=== PATIENT | male | born 1950 | race Caucasian/White ===

== ENCOUNTER 2018-01-19 14:43 | Outpatient (CLI) | payer MEDICARE, OTHER ==
[~2018-01-19] VITALS: Ht 185.4 cm; Wt 152.9 kg
[2018-01-19 14:51] VITALS: BP 149/79
[2018-01-19 15:37] LABS: BASOPHILS % (AUTO) 0 % (0-10); EOSINOPHILS # (AUTO) 0.1 10^3/uL (0.0-0.3); EOSINOPHILS % (AUTO) 1 % (0-10); HEMATOCRIT 45 % (40-54); HEMOGLOBIN 15.4 G/DL (13.3-17.7); LYMPHOCYTES # (AUTO) 1.9 X 10^3 (1.0-4.0); LYMPHOCYTES % (AUTO) 25 % (12-44); MEAN CORPUSCULAR HEMOGLOBIN 29 PG (25-34); MEAN CORPUSCULAR HGB CONC 35 G/DL (32-36); MEAN CORPUSCULAR VOLUME 85 FL (80-99); MEAN PLATELET VOLUME 10.4 FL (7.4-10.4); MONOCYTES # (AUTO) 0.7 X 10^3 (0.0-1.0); MONOCYTES % (AUTO) 9 % (0-12); NEUTROPHILS % (AUTO) 65 % (42-75); PLATELET COUNT 207 10^3/uL (130-400); RED BLOOD COUNT 5.24 10^6/uL (4.35-5.85); RED CELL DISTRIBUTION WIDTH 13.1 % (10.0-14.5); WHITE BLOOD COUNT 7.7 10^3/uL (4.3-11.0)
[2018-01-19 15:44] LABS: BUN/CREATININE RATIO 11; CALCIUM 9.3 MG/DL (8.5-10.1); CARBON DIOXIDE 25 MMOL/L (21-32); CHLORIDE 103 MMOL/L (98-107); CREATININE SERUM 1.01 MG/DL (0.60-1.30); GFR ESTIMATED > 60; GLUCOSE 158 MG/DL (70-105); POTASSIUM 3.2 MMOL/L (3.6-5.0); SODIUM 139 MMOL/L (135-145)
--- NOTE | 2018-01-19 15:54 | Diagnostic Imaging Report ---
INDICATION: Preoperative evaluation. COMPARISON: None. FINDINGS: Two views of the chest are obtained. Heart size is normal. The pulmonary vessels appear unremarkable. There is no pneumothorax, mediastinal widening or pleural fluid. There is minimal atelectasis or infiltrate at the left lung base. The right lung is clear. There are mild degenerative changes in the spine. IMPRESSION: Minimal left basilar atelectasis or infiltrate. No additional abnormality is seen. Dictated by: Dictated on workstation # [id number]
[2018-01-19] MEDS ORDERED: BUSP15TA60 PO (15:55)
[2018-01-19] MEDS ORDERED: CITA40TA11 PO (15:55)
[2018-01-19] MEDS ORDERED: RANI-515 PO (15:55)
[2018-01-19] MEDS ORDERED: TAMS0.4C98 PO (15:55)
[2018-01-19] MEDS ORDERED: ASPI-586 PO (15:55)
[2018-01-19] MEDS ORDERED: CLON0.1T PO (15:55)
[2018-01-19] MEDS ORDERED: DILT30TA PO (15:55)
[2018-01-19] MEDS ORDERED: ATOR80TA76 PO (15:55)
[2018-01-19] MEDS ORDERED: HYDR25TA4 PO (15:55)
[2018-01-19] MEDS ORDERED: LISI40TA PO (15:55)
== END 2018-01-19 15:25 | disposition home or self-care (01) ==
LOC: PREOP 14:43
PROVIDERS: ATTEND Urology
DX: Z01.810 Encounter for preprocedural cardiovascular examination (principal); Z01.811 Encounter for preprocedural respiratory examination; Z01.812 Encounter for preprocedural laboratory examination; Z11.2 Encounter for screening for other bacterial diseases; N40.0 Benign prostatic hyperplasia without lower urinary tract symptoms
CPT/HCPCS: 36415; 71046; 80048; 85025; 86850; 86900; 86901; 87081; 93005

== ENCOUNTER 2018-01-24 06:00 | Day surgery (SDC) | payer MEDICARE, OTHER ==
[~2018-01-24] VITALS: Ht 185.4 cm; Wt 152.9 kg
[~2018-01-24 06:00] MED LIST: ASPI-586 PO; ATOR80TA76 PO; BUSP15TA60 PO; CITA40TA11 PO; CLON0.1T PO; DILT30TA PO; HYDR25TA4 PO; LISI40TA PO; RANI-515 PO; TAMS0.4C98 PO
[2018-01-24] MEDS ORDERED: cefTRIAXone 1 GM (ROCEPHIN) VIAL ONE (06:40)
[2018-01-24] MEDS ORDERED: NS (IVPB) 100 ML ONE (06:40)
[2018-01-24] MEDS ORDERED: LACTATED RINGERS 1,000 ML IV PRN (06:41)
[2018-01-24] MEDS ORDERED: cefTRIAXone INJECTION 1,000 MG in NS (IVPB) 100 ML IV ONE (06:45)
[2018-01-24] MEDS ORDERED: CATHETER FLUSH 10 ML SYR IV PRN (07:00)
[2018-01-24 07:02] VITALS: BP 150/92
--- NOTE | 2018-01-24 07:10 | Progress Note-Post Operative ---
Post-Operative Progess Note Surgeon (s)/Hand Edge Bander (s) Surgeon OREN BETTENCOURT MD Hand Edge Bander: N/A Pre-Operative Diagnosis BPH WITH PROSTATISM, AND OAB Post-Operative Diagnosis SAME Procedure & Operative Findings Date of Procedure 01/24/18 Procedure Performed/Findings TURP Anesthesia Type SPINAL Estimated Blood Loss Estimated blood loss (mL): LESS THAN 50CC Specimens/Packing Specimens Removed PROSTATE CHIPS Packing: N/A OREN BETTENCOURT MD Jan 24, 2018 7:10 am
--- NOTE | 2018-01-24 07:10 | Progress Note-Pre Operative ---
Pre-Operative Progress Note H&P Reviewed The H&P was reviewed, patient examined and no changes noted. Date Seen by Provider: Jan 24, 2018 Time Seen by Provider: 07:09 Date H&P Reviewed: Jan 24, 2018 Time H&P Reviewed: 07:09 Pre-Operative Diagnosis: BPH WITH PROSTATISM, AND OAB OREN BETTENCOURT MD Jan 24, 2018 7:10 am
[2018-01-24] MEDS ORDERED: HYDROcodone/APAP 10 MG/325 MG (LORTAB) TAB PO PRN (07:15)
[2018-01-24] MEDS ORDERED: BELLADONNA ALK/OPIUM (B & O) 30 MG SUPP PR PRN (07:15)
[2018-01-24] MEDS ORDERED: MILK OF MAGNESIA 400 MG/5 ML 30 ML UDC PO PRN (07:15)
[2018-01-24] MEDS ORDERED: ZOLPIDEM 5 MG (AMBIEN) TAB PO PRN (07:15)
[2018-01-24] MEDS ORDERED: PROPOFOL INJECTION 50 ML IV ONE (07:58)
[2018-01-24] MEDS ORDERED: fentaNYL INJECTION 100 MCG/2 ML AMP ONE (07:58)
[2018-01-24] MEDS: LACTATED RINGERS 1,000 ML IV SCH ×3 (08:52→23:10)
[2018-01-24] MEDS ORDERED: ONDANSETRON 4 MG/2 ML (SDV) Z0FRAN IVP PRN (09:45)
[2018-01-24 10:48] VITALS: BP 127/84
[2018-01-24] MEDS ORDERED: methylPREDNISolone 125 MG (Solu-MEDROL) VIAL IVP NR (11:15)
[2018-01-24] MEDS ORDERED: diphenhydrAMINE 50 MG/ML INJ (BENADRYL) IVP NR (11:15)
[2018-01-24 12:00] VITALS: BP 129/64
[2018-01-24] MEDS: DOCUSATE SODIUM 100 MG (COLACE) CAP PO SCH ×2 (12:24→20:03)
[2018-01-24] MEDS ORDERED: LEVOFLOXACIN 500 MG/100 ML IV 100 ML ONE (12:58)
--- NOTE | 2018-01-24 13:49 | OPERATIVE REPORT ---
DATE OF SERVICE: 01/24/2018 PREOPERATIVE DIAGNOSIS: Benign prostatic hypertrophy with prostatism and overactive bladder. POSTOPERATIVE DIAGNOSIS: Benign prostatic hypertrophy with prostatism and overactive bladder. OPERATION PERFORMED: Transurethral resection of the prostate. SURGEON: Oren Bettencourt MD ANESTHESIA: Spinal. COMPLICATIONS: None. DESCRIPTION OF PROCEDURE: Under satisfactory spinal anesthesia, the patient in lithotomy position, genitalia were prepped and draped in the usual sterile fashion. Urethra was dilated with Nasima sound to #30-[place]an to accommodate a 27-[place] NativeX resectoscope. Resection was started first on the median lobe and enlargement. This was leveled to the level of the veru from the bladder neck and the roof from 11 to 1 o'clock and then the lateral lobe and the apical tissue as well. The capsule was visualized in many points. Hemostasis was complete. Prostatic chips were evacuated. Cystoscopy confirmed intact ureteric orifices, veru and sphincter with good reflex. Resectoscope was removed. A 22-Venezuelan three-way 30 mL balloon catheter was inserted in the bladder, the balloon inflated to 30 mL, connected to continuous bladder irrigation with normal saline, the return of which was slightly pink. Estimated blood loss less than 50 mL, none of which was replaced. The patient tolerated the procedure and anesthesia well and was sent to recovery room in stable condition. Job ID: [id number] DocumentID: [id number] Dictated Date: 01/24/2018 09:25:04 Squeak Rattle And Leak Repairer Date: 01/24/2018 13:48:52 Dictated By: OREN BETTENCOURT MD [facility] [place] [facility]
[2018-01-24 16:44] VITALS: BP 172/86
[2018-01-24 20:38] VITALS: BP 172/81
[2018-01-25] VITALS: BP 165/80
[2018-01-25] MEDS: LACTATED RINGERS 1,000 ML IV SCH ×3 (01:51→07:38)
[2018-01-25 04:00] VITALS: BP 160/79
[2018-01-25] MEDS ORDERED: LEVOFLOXACIN 500 MG/100 ML IV 100 ML IV NR (07:00)
[2018-01-25 08:00] VITALS: BP 180/81
[2018-01-25] MEDS: DOCUSATE SODIUM 100 MG (COLACE) CAP PO SCH (08:36)
--- NOTE | 2018-01-25 10:33 | Progress Note-Urology ---
Progress Note-Urology Progress Notes/Assess & Plan Progress/Assessment & Plan DOING AND FEELING WELL. VOIDING WELL. CONTINENT. GOOD STREAM. TINGED URINE. HOME WITH INSTRUCTIONS Final Diagnosis BPH WITH OAB AND PROSTATISM OREN BETTENCOURT MD Jan 25, 2018 10:33 am
--- NOTE | 2018-01-25 10:36 | Discharge Inst-Urology ---
Discharge Inst-Urology Discharge Medications New, Converted, or Re-newed RX: RX given to Patient/Fam Patient Instructions/Follow Up Plan Please make appointment to been seen in office in 2 weeks. Rest till then Keep bowels soft and moving Off ASA, Proscar and Flomax Increase oral fluids for 48 hours and then as needed. Diet as tolerated. If questions or concerns contact your physician Or seek help at emergency department. OREN BETTENCOURT MD Jan 25, 2018 10:36 am
--- NOTE | 2018-01-25 12:05 | Anesthesia-General Post-Op ---
General Patient Condition Mental Status/LOC: Same as Preop Cardiovascular: Satisfactory Nausea/Vomiting: Absent Respiratory: Satisfactory Pain: Controlled Complications: Absent Post Op Complications Complications None Follow Up Care/Instructions Patient Instructions None needed. Anesthesia/Patient Condition Patient Condition Patient is doing well, no complaints, stable vital signs, no apparent adverse anesthesia problems. No complications reported per nursing. ALYSON MANCINI CRNA Jan 25, 2018 12:05
== END 2018-01-25 11:45 | disposition home or self-care (01) ==
LOC: SDC 06:00 → 4TH 10:20 → SDC 01-25 11:45
PROVIDERS: ATTEND Urology
DX: N40.1 Benign prostatic hyperplasia with lower urinary tract symptoms (principal); N32.81 Overactive bladder; I10 Essential (primary) hypertension; G47.33 Obstructive sleep apnea (adult) (pediatric); F32.9 Major depressive disorder, single episode, unspecified; E66.01 Morbid (severe) obesity due to excess calories; Z79.899 Other long term (current) drug therapy; Z88.8 Allergy status to other drugs, medicaments and biological substances; Z68.42 Body mass index [BMI] 45.0-49.9, adult
CPT/HCPCS: 86850; 86900; 86901; 94664; 94760